=== PATIENT | male | born 1940 | race Caucasian/White ===

== ENCOUNTER 2020-12-14 12:00 | Day surgery (SDC) | payer BC ==
[~2020-12-14] VITALS: Ht 190.5 cm; Wt 95.0 kg
[2020-12-14] MEDS ORDERED: SODIUM CHLORIDE 0.9% 1,000 ML IV SCH (12:30)
[2020-12-14] MEDS ORDERED: CEFAZOLIN PMX 1GM/50ML 50 ML IVPB ONE (12:30)
[2020-12-14] MEDS ORDERED: ROSU40TA PO (12:56)
[2020-12-14] MEDS ORDERED: CARV25TA12 PO (12:56)
[2020-12-14] MEDS ORDERED: METF500T17 PO (12:56)
[2020-12-14] MEDS ORDERED: ISOS30TA8 PO (12:56)
[2020-12-14] MEDS ORDERED: INSU100I13 SC (12:56)
[2020-12-14] MEDS ORDERED: EMPA25TA PO (12:56)
[2020-12-14] MEDS ORDERED: LISI-170 PO (12:56)
[2020-12-14] MEDS ORDERED: SERT-331 PO (12:56)
[2020-12-14] MEDS ORDERED: APIX5TAB PO (12:56)
[2020-12-14] MEDS ORDERED: DIGO125T85 PO (12:56)
[2020-12-14 12:58] LABS: BASOPHILS % (AUTO) 0 % (0-1); EOSINOPHILS % (AUTO) 2 % (1-7); LYMPHOCYTES % (AUTO) 19 % (22-44); MEAN CORPUSCULAR HEMOGLOBIN 29.2 pg (27.5-34.5); MEAN CORPUSCULAR HGB CONC 33.7 g/dL (33.2-36.2); MEAN PLATELET VOLUME 9.1 fL (7.4-10.4); MONOCYTES % (AUTO) 6 % (2-9); NEUTROPHILS % (AUTO) 72 % (42-75); PLATELET COUNT 166 x10^3/uL (130-400); RED BLOOD COUNT 4.57 x10^6/uL (4.38-5.82); RED CELL DISTRIBUTION WIDTH 14.9 % (9.4-14.8)
[2020-12-14 12:59] LABS: CHLORIDE 109 mmol/L (98-107)
[2020-12-14 13:00] LABS: MD NO
[2020-12-14] MEDS ORDERED: PLEASE ENTER ALLERGIES MC SCH (13:00)
[2020-12-14] MEDS ORDERED: PLEASE ENTER HEIGHT AND WEIGHT MC SCH (13:00)
[2020-12-14 13:05] LABS: ANION GAP 4 mmol/L (5-15)
[2020-12-14] MEDS ORDERED: FENTANYL PF 100 MCG/2ML ONE ×2 (13:26→14:14)
[2020-12-14] MEDS ORDERED: LIDOCAINE 2%, 20ML ONE (13:26)
[2020-12-14] MEDS ORDERED: CEFAZOLIN 1,000 MG ONE (13:26)
[2020-12-14] MEDS ORDERED: MIDAZOLAM 1 MG/ML, 2ML ONE (13:26)
[2020-12-14] MEDS ORDERED: CEFAZOLIN PMX 1GM/50ML 50 ML ONE (13:26)
== END 2020-12-14 16:20 | disposition home or self-care (01) ==
LOC: CACL 12:00
PROVIDERS: ATTEND Internal Medicine Clinical Cardiac Electrophysiology
DX: Z45.02 Encounter for adjustment and management of automatic implantable cardiac defibrillator (principal); I25.9 Chronic ischemic heart disease, unspecified; I25.2 Old myocardial infarction; I10 Essential (primary) hypertension; E11.9 Type 2 diabetes mellitus without complications; Z79.01 Long term (current) use of anticoagulants; Z79.4 Long term (current) use of insulin; Z79.899 Other long term (current) drug therapy
CPT/HCPCS: 33264; 36415; 80048; 82962; 85025; 99156; 99157; C1882; J0690; J2250; J3010